=== PATIENT | male | born 1950 ===

== ENCOUNTER 2018-06-07 12:23 | Inpatient (IN) | payer OTHER ==
[~2018-06-07] VITALS: Ht 170.2 cm; Wt 85.3 kg
[~2018-06-07 12:23] MED LIST: AVAPRO150 MG PO
== END 2018-06-12 11:01 | disposition home or self-care (01) | DRG 708 ==
LOC: EDBD → O/R 06-10 05:50 → SURH 06-10 05:50 → O/R 06-10 07:00 → SURH 06-10 13:00 → O/R 06-10 14:30 → SURH 06-12 11:01
PROVIDERS: Urology
PROC: 07TC0ZZ Resection of Pelvis Lymphatic, Open Approach (ICD-10-PCS; 2018-06-10)
PROC: 0VT00ZZ Resection of Prostate, Open Approach (ICD-10-PCS; principal; 2018-06-10 07:00)
DX: C61 Malignant neoplasm of prostate (principal); I10 Essential (primary) hypertension